=== PATIENT | male | born 1945 | race Caucasian/White ===

== ENCOUNTER 2017-03-26 08:44 | Inpatient (IN) | payer OTHER ==
[2017-03-26] VITALS (7 sets, daily range): BP systolic 141–147; BP diastolic 64–78; PULSE 63–86; RESP 18–20; TEMP 98.2; Ht 177.8 cm; Wt 107.5 kg
[~2017-03-26] VITALS: Ht 177.8 cm; Wt 107.5 kg
[2017-03-26] MEDS ORDERED: SOD CHLORIDE 0.9% 500 ML IV STA (08:49)
[2017-03-26] MEDS ORDERED: LANT3I SC (08:57)
[2017-03-26] MEDS ORDERED: ASPI-664 PO (08:58)
[2017-03-26] MEDS ORDERED: METF1000 PO (08:58)
[2017-03-26] MEDS ORDERED: LIRA0.6P SQ (08:59)
[2017-03-26] MEDS ORDERED: ATOR10TA65 PO (08:59)
[2017-03-26] MEDS ORDERED: OXYB10TA6 PO (08:59)
[2017-03-26] MEDS ORDERED: CETI-240 PO (08:59)
[2017-03-26] MEDS ORDERED: TAMS-14 PO (09:00)
[2017-03-26] MEDS ORDERED: AMLO2.5T78 PO (09:00)
[2017-03-26 09:01] LABS: ADD SCAN DIFF NO
[2017-03-26] MEDS ORDERED: OMEP20CA16 PO (09:01)
[2017-03-26] MEDS ORDERED: GABA100C14 PO (09:01)
[2017-03-26] MEDS ORDERED: TRAM50TA2 PO (09:01)
[2017-03-26] MEDS ORDERED: ATOR40TA68 PO (09:03)
[2017-03-26] MEDS ORDERED: FINA5TAB4 PO (09:04)
[2017-03-26] MEDS ORDERED: LIRA0.6P2 SQ (09:06)
[2017-03-26] MEDS ORDERED: FLUT16SP17 NASAL (09:09)
[2017-03-26] MEDS ORDERED: OMEG-135 PO (09:09)
[2017-03-26] MEDS ORDERED: GABA300C16 PO (09:10)
[2017-03-26] MEDS ORDERED: DEXT1TAB12 PO (09:13)
[2017-03-26] MEDS ORDERED: ALBU8.5H3 INH (09:14)
[2017-03-26 09:16] LABS: ALBUMIN 3.8 g/dl (3.3-4.9)
[2017-03-26] MEDS ORDERED: MICO30CR17 TOP (09:16)
[2017-03-26] MEDS ORDERED: MULT-761 PO (09:16)
[2017-03-26 09:17] LABS: CHLORIDE 98 mmol/L (97-110); POTASSIUM 4.1 mmol/L (3.5-5.1); SODIUM 138 mmol/L (135-144)
[2017-03-26] MEDS ORDERED: KENC1 TOP (09:17)
[2017-03-26 09:19] LABS: ANION GAP 17 (8-16); ASPARTATE AMINO TRANSFERASE 43 IU/L (15-46); BILIRUBIN,INDIRECT 0.1 mg/dl (0-1.1); BILIRUBIN,TOTAL 0.1 mg/dl (0.2-1.3); CARBON DIOXIDE 27 mmol/L (21-31); CREATININE 0.88 mg/dl (0.61-1.24)
--- NOTE | 2017-03-26 09:19 | RADRPT ---
PROCEDURE: XR Chest 1 View. CLINICAL INDICATION: Chest pain TECHNIQUE: AP view of the chest was obtained. COMPARISON: None. FINDINGS: The cardiomediastinal silhouette is within normal limits. The lungs are hypoinflated. Subsegmental atelectasis is noted in the bilateral lower lobes. No consolidations are identified. No pneumothora x is seen. Osseous structures are intact. IMPRESSION: Hypoinflated lungs with subsegmental atelectasis in the bilateral lower lobes. RPTAT: AA .Raf Wagner MD, Date Time Electronically viewed and signed by .Raf Wagner MD, on 03/26/2017 09:19 .P/
[2017-03-26 09:20] LABS: ALANINE AMINOTRANSFERASE 64 IU/L (13-69); ALBUMIN/GLOBULIN RATIO 1.08; ALKALINE PHOSPHATASE 89 IU/L (42-121); BASOPHILS % 0.2 % (0.0-2.0); BLOOD UREA NITROGEN 22 mg/dl (7-20); CALCIUM 9.2 mg/dl (8.4-10.2); EOSINOPHILS # 0.1 10^3/ul (0.0-0.5); EOSINOPHILS % 0.9 % (0.0-7.0); GLUCOSE 231 mg/dl (70-220); HEMATOCRIT 37.7 % (42.0-52.0); HEMOGLOBIN 12.6 g/dl (14.0-18.0); LYMPHOCYTES # 1.6 10^3/ul (0.8-2.9); LYMPHOCYTES % 12.5 % (15.0-51.0); MEAN CORPUSCULAR HGB CONC 33.4 g/dl (32.0-37.0); MEAN CORPUSCULAR VOLUME 89.8 fl (82.0-101.0); MEAN PLATELET VOLUME 10.4 fl (7.4-10.4); MONOCYTE # 1.2 10^3/ul (0.3-0.9); PLATELET COUNT 261 10^3/UL (140-415); TOTAL PROTEIN 7.3 g/dl (6.1-8.1); WHITE BLOOD COUNT 12.9 10^3/ul (4.8-10.8)
[2017-03-26] MEDS ORDERED: METH85CR TP (09:20)
[2017-03-26 09:24] LABS: INR 1.02; PROTIME 13.4 Sec (12.2-14.2)
[2017-03-26 09:25] LABS: PARTIAL THROMBOPLASTIN TIME 29.9 Sec (25.0-35.0)
[2017-03-26 09:29] LABS: B-TYPE NATRIURETIC PEPTIDE 62 PG/ML (0-125)
[2017-03-26 09:32] LABS: TROPONIN-I < 0.012 ng/ml (0.00-0.12)
--- NOTE | 2017-03-26 10:08 | ERA ---
ER Documentation Chief Complaint Date/Time DATE: 03/26/17 TIME: 10:02 Chief Complaint CP SINCE 0600 THIS AM, SENT BY CLINIC, NO DIAPHORESIS. MILD SOB HPI This is a 71 mL had chest pain since exam this morning. He walked into the [place] [facility] where they call 911 immediately. He was given aspirin and nitro in the field. EKG is read as STEMI. Upon arrival, patient is chest pain-free. Dr. Moralesand cardiology was consulted, and he is declined but this was a stem insulin patient likely had an infarct hours ago now has Q waves on his EKG which I agree with. Patient is a pain is mild to moderate in intensity with associated diaphoresis and mild shortness of breath. No fevers no chills. No other current complaints. ROS All systems reviewed and are negative except as per history of present illness. Medications Home Meds Reported Medications Methyl Salicylate/Menthol (Muscle Rub Cream) 85 Gm Cream.gm., 85 GM TP DAILY Y for PAIN 03/26/17 Triamcinolone Acetonide* (Kenalog*) 0.1%-15GM Cr, 1 APPLIC TOP EVERY OTHER DAY, #1 TUB 03/26/17 Miconazole Nitrate* (Miconazole Nitrate*) 2% - 30 Gm Cr, 1 APPLIC TOP BID, TUB 03/26/17 Multivitamin (MULTI VITAMIN DAILY) 1 Each Tablet, 1 TAB PO DAILY, TAB 03/26/17 Albuterol Sulfate* (Proair HFA*) 8.5 Gm Hfa.aer.ad, 2 PUFF INH Q4H Y for WHEEZING AND SOB, #1 INHALER 03/26/17 Dextrose (GLUCOSE BITS) 1 Gm Tab.chew, 4 GM PO PRN Y for LOW BLOOD SUGAR, TAB.CHEW BLOOD SUGAR LESS THAN 80 RECHECK BLOOD SUGAR IN 15 MIN AND REPEAT IF NECESSARY EAT FULL MEAL AFTERWARDS 03/26/17 Gabapentin* (Gabapentin*) 300 Mg Capsule, 300 MG PO QHS, #60 CAP 03/26/17 Fluticasone Propionate* (Fluticasone Propionate* Nasal) 50 Mcg/[place] - 16 Gm [place].susp, 1 SPRAY NASAL BID, #1 BOTTLE TO EACH NOSTRIL 03/26/17 [place]-3 Fatty Acids/Fish Oil (Fish Oil 1,000 mg Capsule) 1 Each Capsule, 1 EACH PO DAILY, CAP 03/26/17 Liraglutide (Victoza 3-Devante) 0.6 Mg/0.1 Ml Pen.injctr, 1.8 MG SQ DAILY, SYR 03/26/17 Finasteride* (Finasteride*) 5 Mg Tablet, 5 MG PO DAILY, TAB 03/26/17 Atorvastatin* (Atorvastatin*) 40 Mg Tablet, 40 MG PO QHS, #30 TAB 03/26/17 Tramadol HCl (Tramadol HCl) 50 Mg Tablet, 50 MG PO BID Y for PAIN, #60 TAB 03/26/17 Omeprazole* (Omeprazole*) 20 Mg Capsule.dr, 20 MG PO BID, #60 CAP 03/26/17 Amlodipine Besylate* (Amlodipine Besylate*) 2.5 Mg Tablet, 2.5 MG PO DAILY, #30 TAB 03/26/17 Tamsulosin Hcl* (Flomax*) 0.4 Mg Cap.er.24h, 0.4 MG PO DAILY, CAP 03/26/17 Oxybutynin Chloride* (Ditropan* XL) 10 Mg Tab.er.24, 10 MG PO DAILY, TAB.SA 03/26/17 Cetirizine Hcl* (Cetirizine Hcl*) 10 Mg Tablet, 10 MG PO DAILY, #30 TAB 03/26/17 Aspirin (Low Dose Aspirin) 81 Mg Tablet.dr, 81 MG PO DAILY, #30 TAB 03/26/17 Metformin Hcl* (Metformin Hcl*) 1,000 Mg Tablet, 1000 MG PO WITH BREAKFAST DINNE , #30 TAB 03/26/17 Insulin Glargine* (Lantus*) 100 Unit/Ml Soln, 30 UNIT SC QHS, #1 VIAL 03/26/17 Discontinued Reported Medications Gabapentin* (Gabapentin*) 100 Mg Capsule, 200 MG PO QHS, #180 CAP 03/26/17 Atorvastatin Calcium (Atorvastatin Calcium) 10 Mg Tablet, 10 MG PO QHS, #30 TAB 03/26/17 Liraglutide (Victoza 2-Devante) 0.6 Mg/0.1 Ml Pen.injctr, 1.2 MG SQ DAILY, SYR 03/26/17 Allergies Allergies: Coded Allergies: No Known Allergy (Unverified , 03/26/17) PMhx/Soc Medical and Surgical Hx: pt denies Surgical Hx Anesthesia Reaction: No Hx Neurological Disorder: No Hx Respiratory Disorders: No Hx Cardiac Disorders: Yes (HTN, Hyperlipidemia) Hx Psychiatric Problems: No Hx Miscellaneous Medical Probl: Yes (DMII) Hx Alcohol Use: No Hx Substance Use: No Hx Tobacco Use: Yes Smoking Status: Former smoker Physical Exam Vitals Vital Signs Date Time Temp Pulse Resp B/P Pulse Ox O2 Delivery O2 Flow Rate FiO2 03/26/17 09:00 0 03/26/17 09:00 98.2 91 17 120/88 95 Room Air 03/26/17 08:52 98.1 89 120/88 96 Physical Exam Const: [] Head: Atraumatic Eyes: Normal Conjunctiva ENT: Normal External Ears, Nose and Mouth. Neck: Full range of motion..~ No meningismus. Resp: Clear to auscultation bilaterally Cardio: Regular rate and rhythm, no murmurs Abd: Soft, non tender, non distended. Normal bowel sounds Skin: No petechiae or rashes Back: No midline or flank tenderness Ext: No cyanosis, or edema Neur: Awake and alert Psych: Normal Mood and Affect Result Diagram: 03/26/17 0856 03/26/17 0856 Results 24 hrs Laboratory Tests Test 03/26/17 08:56 White Blood Count 12.910^3/ul Red Blood Count 4.2010^6/ul Hemoglobin 12.6g/dl Hematocrit 37.7% Mean Corpuscular Volume 89.8fl Mean Corpuscular Hemoglobin 30.0pg Mean Corpuscular Hemoglobin Concent 33.4g/dl Red Cell Distribution Width 14.0% Platelet Count 15306^3/UL Mean Platelet Volume 10.4fl Neutrophils % 77.0% Lymphocytes % 12.5% Monocytes % 9.0% Eosinophils % 0.9% Basophils % 0.2% Nucleated Red Blood Cells % 0.0/100WBC Neutrophils # 10.010^3/ul Lymphocytes # 1.610^3/ul Monocytes # 1.210^3/ul Eosinophils # 0.110^3/ul Basophils # 0.010^3/ul Nucleated Red Blood Cells # 0.010^3/ul Prothrombin Time 13.4Sec Prothrombin Time Ratio 1.0 INR International Normalized Ratio 1.02 Activated Partial Thromboplast Time 29.9Sec Sodium Level 138mmol/L Potassium Level 4.1mmol/L Chloride Level 98mmol/L Carbon Dioxide Level 27mmol/L Anion Gap 17 Blood Urea Nitrogen 22mg/dl Creatinine 0.88mg/dl Glucose Level 231mg/dl Calcium Level 9.2mg/dl Total Bilirubin 0.1mg/dl Direct Bilirubin 0.00mg/dl Indirect Bilirubin 0.1mg/dl Aspartate Amino Transf (AST/SGOT) 43IU/L Alanine Aminotransferase (ALT/SGPT) 64IU/L Alkaline Phosphatase 89IU/L Troponin I < 0.012ng/ml B-Type Natriuretic Peptide 62PG/ML Total Protein 7.3g/dl Albumin 3.8g/dl Globulin 3.50g/dl Albumin/Globulin Ratio 1.08 Current Medications Medications (Trade) Dose Ordered Sig/[place] Route PRN Reason Start Time Stop Time Status Last Admin Dose Admin Sodium Chloride (NS) 500 ml @ 500 mls/hr Q1H STAT IV 03/26/17 08:49 03/26/17 09:48 DC 03/26/17 09:27 Procedures/MDM EKG: Rate/Rhythm: Normal Sinus Rhythm QRS, ST, T-waves: [Q waves in anterior leads, minimal ST segment elevations in V1 through 4 Impression: No evidence of ischemia or arrhythmia Chest X-ray 1V Interpreted by me: Soft Tissue: No acute abnormalities Bones: No acute abnormalities Mediastinum/Cardiac Silhouette/Lungs: No acute abnormalities Patient's symptoms are concerning for cardiac cause will require inpatient workup and continuous monitoring. Further w/u for ischemia, arrhythmia, PE or dissection will be deferred to the inpatient team. Accepting Care Team: Current data and ongoing care discussed. Time: 9:30 AM Primary Provider: Hospitalist Consulting: mert Outstanding Data: none Critical Care: Time: 45 minutes Treatments/Evaluations: Close monitoring and treatment of unstable vital signs, cardiorespiratory, and neurologic status, while maintaining tight balance of fluid, respiratory, and cardiac interventions. Departure Diagnosis: Primary Impression: Chest pain Qualified Code: I20.0 - Unstable angina pectoris Condition: Serious EDNA BROCK March 26, 2017 10:08
[2017-03-26] MEDS ORDERED: hydrALAzine 20 MG INJ IV PRN (11:00)
[2017-03-26] MEDS ORDERED: GLUCOSE GEL 15 GRAM TUBE PO PRN ×2 (11:00)
[2017-03-26] MEDS ORDERED: ALBUTEROL 0.083% (NEB) 2.5 MG/3 ML AMP HHN PRN (11:00)
[2017-03-26] MEDS ORDERED: NACL 0.9% 3 ML SYG IV SCH (11:00)
[2017-03-26] MEDS ORDERED: BISACODYL (EC) 5 MG TAB PO PRN (11:00)
[2017-03-26] MEDS ORDERED: GLUCOSE GEL 15 GRAM TUBE BUCCAL PRN (11:00)
[2017-03-26] MEDS ORDERED: HYDROCODONE/APAP (5/325) TAB PO PRN (11:00)
[2017-03-26] MEDS ORDERED: GLUCAGON 1 MG INJ IM PRN (11:00)
[2017-03-26] MEDS ORDERED: ONDANSETRON 4 MG INJ IV PRN (11:00)
[2017-03-26] MEDS ORDERED: MAGNESIUM HYDROXIDE 30ML CUP PO PRN (11:00)
[2017-03-26] MEDS ORDERED: DEXTROSE 50% 50 ML SYRINGE IV PRN ×2 (11:00)
[2017-03-26 11:31] LABS: IRON 30 ug/dl (35-150)
[2017-03-26 11:40] LABS: TOTAL IRON BINDING CAPACITY 352 ug/dl (241-421)
--- NOTE | 2017-03-26 11:45 | HP ---
DATE OF ADMISSION: 03/26/2017 TIME OF EVALUATION: 10:30 a.m. REASON FOR ADMISSION: Chest pain. CONSULTATIONS: Dr. Jose Auguste, Cardiology HISTORY OF PRESENT ILLNESS: This is a 71-year-old male with past medical history of essential hypertension, type 2 diabetes mellitus, dyslipidemia, and obesity who came to the emergency room because of chest pain. The patient walked into the [facility] because of chest pain and they called the paramedics. The patient was given aspirin and nitroglycerin in the field with improvement in the patient's chest pain. The patient verbalized the chest pain as substernal in origin with no radiation or no associated autonomic symptoms. The patient denied any dizziness. The patient denied any prior history of CAD. The patient's EKG showed acute VT and a code STEMI was called. However, after evaluation by lithographic photographer, the patient had Q-waves in the leads that had ST elevation and was brought to be not in acute STEMI, but the patient might have had an VT in the recent past. Hence, the code STEMI was canceled, and the patient was not taken to the [facility]. The patient denied any dyspnea. He denied any nausea, vomiting, abdominal pain, diarrhea, hematochezia, or dysuria. The patient verbalized that he has been compliant with his home medications. In the emergency room, the patient's initial troponin was negative. The patient was noticed to have minimal leukocytosis with some anemia. PAST MEDICAL HISTORY: Essential hypertension, type 2 diabetes mellitus, hyperlipidemia, obesity, benign prostatic hypertrophy. PAST SURGICAL HISTORY: Left carpal tunnel syndrome surgery. Left second toe amputation secondary to diabetic ulceration. HOME MEDICATIONS: 1. ProAir HFA 8.5 g 2 puffs inhaled q.4 hours p.r.n. dyspnea. 2. Gabapentin 300 mg p.o. at bedtime. 3. [place] 3 fatty acids. 4. Liraglutide 0.6 mg injection subcutaneously daily. 6. Finasteride 5 mg p.o. daily. 7. Atorvastatin 40 mg p.o. daily. 8. Tramadol 50 mg p.o. b.i.d. p.r.n. pain. 9. Tamsulosin 0.4 mg p.o. daily. 10. Ditropan XL 10 mg p.o. daily. 11. Aspirin 81 mg p.o. daily. 12. Metformin 1000 mg p.o. with breakfast and dinner. 13. Lantus insulin 30 units subcutaneously at bedtime. ALLERGIES: NO KNOWN DRUG ALLERGIES. SOCIAL HISTORY: The patient lives at home by himself. The patient has a remote history of smoking. Current occasional alcoholic drinker. Denied any use of any drugs. REVIEW OF SYSTEMS: A 12-point review of systems was obtained and reviewed of systems was negative other than what is mentioned in the history of present illness. PHYSICAL EXAMINATION: VITAL SIGNS: Temperature 98.2, pulse rate 81, respiratory rate 22, blood pressure 130/60, oxygen saturation 96% on room air. GENERAL: This is a morbidly obese male lying in bed in no apparent distress. HEENT: Head normocephalic and atraumatic. Eyes: Anicteric sclerae. Conjunctivae clear. ENT: Nasal septum is midline. Oral mucosa is dry. NECK: Short and obese. Unable to visualize any neck veins. CARDIAC: Regular rate and rhythm. GASTROINTESTINAL: S1 and S2 heard. ABDOMEN: Obese. Soft. Nondistended. Bowel sounds positive in all 4 quadrants. GENITOURINARY: Deferred. EXTREMITIES: No cyanosis, no clubbing, no edema. Peripheral pulses palpable. NEUROLOGIC: The patient is awake, alert, and oriented. Cranial nerves are grossly intact. LABORATORY AND DIAGNOSTIC DATA: WBC 12.9, hemoglobin 12.6, hematocrit 37.7, platelet count 261. Sodium 138, potassium 4.1, chloride 98, carbon dioxide 20, anion gap 17, BUN 22, creatinine 0.88, glucose 231, calcium 9.2, AST 43, ALT 65 , alkaline phosphatase 89, troponin I less than 0.01, proBNP 62, total protein 7.3, albumin 3.8. PT 13.4, INR 1.03, PTT 29.9. Chest x-ray: Hypoinflated lungs, subsegmental atelectasis in bilateral lower lobes. IMPRESSION: This is a 71-year-old male with multiple comorbidities who was brought to the emergency room with chief complaint of chest pain who was found to have evidence of ST elevation myocardial infarction, but was later evaluated by lithographic photographer and a code STEMI was canceled. However, the patient will be admitted to inpatient setting for further evaluation. ASSESSMENT AND PLAN: 1. Chest pain with EKG changes. The patient will be ruled out for any acute coronary syndrome. Serial troponins will be ordered. A 2-D echocardiogram will be obtained. The patient will be started on aspirin. Cardiology consult was already called by the ER physician. 2. Essentially hypertension. The patient's home antihypertensives will be resumed. The patient will also be started on p.r.n. antihypertensives for any systolic blood pressure readings greater than 160 mmHg. 3. Type 2 diabetes mellitus. The patient will be started on sliding scale insulin along with the Lantus insulin and premeal insulin. Hemoglobin A1c will be obtained to evaluate the blood glucose control over the past few weeks. 4. Dyslipidemia. A fasting lipid panel will be obtained. The patient's statins will be resumed. 5. Benign prostatic hypertrophy. The patient's BPH medications will be resumed. 6. Normocytic normochromic anemia. Etiology unclear. Will obtain an iron panel on this patient. The patient's H and H will be monitored closely. PLAN: The patient will be admitted to inpatient telemetry floor. The patient will be kept n.p.o. until Cardiology evaluates the patient. The patient will be started on DVT prophylaxis and gastrointestinal prophylaxis. The patient will remain a full code. Activities will be as tolerated. The rest of the patient's management will be based on the clinical course, the results of diagnostic studies, and input from consultants. Based on the patient's clinical presentation, he most probably requires at least 1 midnight's stay for further management and evaluation of his clinical presentation. The case and management of this patient was fully discussed with Dr. Nunez. DAVID NUNEZ MD, AM/LUIS Conf#: [id number] DID#: [id number] MORIAH
[2017-03-26] MEDS ORDERED: OXYBUTYNIN (XL) 5 MG TAB PO SCH (12:00)
[2017-03-26] MEDS: INSULIN ASPART [NOVOLOG] 3 ML PEN SC SCH ×5 (12:00→20:22)
[2017-03-26] MEDS ORDERED: FINASTERIDE 5 MG TAB PO SCH (12:00)
[2017-03-26] MEDS: ASPIRIN (EC) 81 MG TAB PO SCH (12:31)
[2017-03-26] MEDS: AMLODIPINE 2.5 MG TAB PO SCH (12:31)
[2017-03-26] MEDS: ENOXAPARIN 40 MG/0.4 ML SYG SC SCH (13:01)
[2017-03-26 15:39] LABS: CREATINE KINASE 272 IU/L (23-200)
[2017-03-26 15:52] LABS: TROPONIN-I < 0.012 ng/ml (0.00-0.12)
[2017-03-26 17:31] LABS: BARBITURATES NEGATIVE (NEGATIVE); BENZODIAZEPINES NEGATIVE (NEGATIVE); CANNABINOIDS NEGATIVE (NEGATIVE); COCAINE NEGATIVE (NEGATIVE); OPIATES NEGATIVE (NEGATIVE)
[2017-03-26] MEDS ORDERED: NITROGLYCERIN (SL) 0.4 MG TAB SL PRN (19:00)
--- NOTE | 2017-03-26 19:28 | RADRPT ---
Echocardiogram Report Patient Name: OMAR MOTT Gender: Male Date: 1945 Study Date: 26-Mar-2017 Coordinate Measuring Machine Operator: ERICA [facility] Location: [facility] Ref. Physician: DAVID HILARIO Quality: Adequate Procedures: Transthoracic echocardiogram with complete 2D, M-Mode, and doppler examination. Indications: Chest Pain. 2D/M Mode Doppler Measurement Value Normal Ranges Measurement Value Normal Ranges LVIDd 2D 4.7 3.5 - 5.6 cm AV Peak [place] 1.3 m/sec LVIDs 2D 3.1 2.1 - 4.1 cm AV Peak PG 6.3 mmHg LVPWd 2D 1.2 0.6 - 1.1 cm LVOT Peak [place] 1.1 m/sec IVSd 2D 1.1 0.6 - 1.1 cm LVOT Peak PG 5.1 mmHg AoR Diam 2D 3.2 2.0 - 3.7 cm MV E Peak [place] 0.9 m/sec EDV 2D 102.3 cm3 MV A Peak [place] 0.8 m/sec ESV 2D 29.0 cm3 MV E/A 1.1 LA Dimen 2D 3.3 2.3 - 4.0 cm MV Decel Time 202 msec MV Decel [place] 4 MV E/A 1.1 TR Peak [place] 2.7 m/sec TR Peak PG 27.6 mmHg PA Pressure 32.0 mmHg RVSP 32.0 mmHg Findings Left Ventricle: Normal left ventricular systolic function. Normal left ventricular cavity size. Left ventricular wall thickness upper limits of normal. Ejection fraction is visually estimated at 60 %. Tissue Doppler/Mitral Doppler indices are consistent with impaired relaxation (Stage I diastolic dysfunction). Right Ventricle: Normal right ventricular size. Left Atrium: The left atrium is normal in size. Right Atrium: The right atrium is normal in size. Mitral Valve: Mild mitral annular calcification. Trace mitral regurgitation. Aortic Valve: Normal appearance of the aortic valve. No significant aortic stenosis or insufficiency. Tricuspid Valve: Tricuspid valve not well visualized. Estimated peak PA systolic pressure 32 mmHg. There is mild tricuspid regurgitation. Pulmonic Valve: Pulmonic valve not well visualized. There is trace pulmonic regurgitation. Pericardium: Normal pericardium with no significant pericardial effusion. Aorta: Normal aortic root. IVC: Normal size and normal respiratory collapse consistent with normal right atrial pressure. Conclusions 1.Normal left ventricular systolic function. Normal left ventricular cavity size. Left ventricular wall thickness upper limits of normal. Ejection fraction is visually estimated at 60 %. Tissue Doppler/Mitral Doppler indices are consistent with impaired relaxation (Stage I diastolic dysfunction). 2.Mild mitral annular calcification. Trace mitral regurgitation. 3.Tricuspid valve not well visualized. Estimated peak PA systolic pressure 32 mmHg. There is mild tricuspid regurgitation. 4.Pulmonic valve not well visualized. There is trace pulmonic regurgitation. Electronically Signed By: Omar Auguste 26-Mar-2017 19:27:07 -0700 Patient Name: OMAR MOTT Study Date: 26-Mar-2017 [id number]
[2017-03-26] MEDS ORDERED: INSULIN GLARGINE [LANtus] 3 ML PEN SC SCH (20:00)
[2017-03-26] MEDS: METOPROLOL 25 MG TAB PO SCH (20:15)
[2017-03-26] MEDS: FAMOTIDINE 20 MG TAB PO SCH (20:16)
[2017-03-26] MEDS: FLUTICASONE 0.05% 16 GM NAS SPRAY NASAL SCH (20:16)
[2017-03-26] MEDS ORDERED: GABAPENTIN 300 MG CAP PO SCH (21:00)
[2017-03-26] MEDS ORDERED: ATORVASTATIN 40 MG TAB PO SCH (21:00)
[2017-03-26 21:32] LABS: TROPONIN-I 0.022 ng/ml (0.00-0.12)
[2017-03-26 21:33] LABS: CK-MB 9.93 ng/ml (0.0-2.4)
[2017-03-27] VITALS (10 sets, daily range): BP systolic 123–134; BP diastolic 63–79; PULSE 67–133; RESP 18
[2017-03-27] MEDS ORDERED: ACCU-CHEK XX SCH (02:00)
[2017-03-27] MEDS: INSULIN ASPART [NOVOLOG] 3 ML PEN SC SCH ×4 (06:34→13:54)
[2017-03-27 06:54] LABS: ADD SCAN DIFF NO
[2017-03-27 07:00] LABS: BASOPHILS % 0.3 % (0.0-2.0); EOSINOPHILS # 0.2 10^3/ul (0.0-0.5); EOSINOPHILS % 1.5 % (0.0-7.0); HEMATOCRIT 38.7 % (42.0-52.0); HEMOGLOBIN 12.7 g/dl (14.0-18.0); LYMPHOCYTES # 1.7 10^3/ul (0.8-2.9); LYMPHOCYTES % 13.5 % (15.0-51.0); MEAN CORPUSCULAR HEMOGLOBIN 29.7 pg (29.0-33.0); MEAN CORPUSCULAR HGB CONC 32.8 g/dl (32.0-37.0); MEAN CORPUSCULAR VOLUME 90.4 fl (82.0-101.0); MEAN PLATELET VOLUME 10.6 fl (7.4-10.4); MONOCYTE # 1.2 10^3/ul (0.3-0.9); MONOCYTES % 9.5 % (0.0-11.0); NEUTROPHIL # 9.4 10^3/ul (1.6-7.5); NEUTROPHILS % 74.7 % (39.0-77.0); PLATELET COUNT 250 10^3/UL (140-415); RED BLOOD COUNT 4.28 10^6/ul (4.70-6.10); RED CELL DISTRIBUTION WIDTH 14.2 % (11.5-14.5); WHITE BLOOD COUNT 12.6 10^3/ul (4.8-10.8)
[2017-03-27 07:15] LABS: ALBUMIN 3.6 g/dl (3.3-4.9)
[2017-03-27 07:16] LABS: POTASSIUM 4.1 mmol/L (3.5-5.1)
[2017-03-27 07:18] LABS: ALBUMIN/GLOBULIN RATIO 1.02; BILIRUBIN,INDIRECT 0.3 mg/dl (0-1.1); BILIRUBIN,TOTAL 0.3 mg/dl (0.2-1.3); CREATININE 0.96 mg/dl (0.61-1.24); TOTAL PROTEIN 7.1 g/dl (6.1-8.1)
[2017-03-27 07:19] LABS: CALCIUM 9.1 mg/dl (8.4-10.2)
[2017-03-27 07:24] LABS: CHOL/HDL RATIO 4.4 RATIO; MAGNESIUM 1.8 mg/dl (1.7-2.5); PHOSPHORUS 3.6 mg/dl (2.5-4.9)
[2017-03-27 07:27] LABS: TROPONIN-I 0.038 ng/ml (0.00-0.12)
[2017-03-27 07:34] LABS: CK-MB 6.17 ng/ml (0.0-2.4)
--- NOTE | 2017-03-27 07:35 | CONS ---
DATE OF ADMISSION: 03/26/2017 DATE OF CONSULTATION: 03/26/2017 REASON FOR CONSULTATION: Chest pain, assess for acute coronary syndrome. REQUESTING PHYSICIAN: Pieter Wilson NP from the hospitalist service and Dr. Nunez. HISTORY OF PRESENT ILLNESS: Mr. Duong is a 71-year-old male with a history of hypertension, diabete s mellitus, dyslipidemia, and obesity who initially was admitted with substernal chest pain. The pa daxa had presented to his primary care physician at the [place] [facility] with chest pain and on EKG he was thought to have ST elevation [place] and subsequently was sent to [facility] for [facility] evaluation. Upon arrival and review of the patient's EKG, STEMI was called off by the interventi onalist division sergeant, Dr. Novoa. Patient now has been admitted to the floor for further evaluation and t reatment. At this time, the patient denies chest pain, shortness of breath. PAST MEDICAL HISTORY: As above in HPI. The patient denied prior myocardial infarction or CVA. MEDICATIONS CURRENTLY IN HOSPITAL: 1. . 2. Lipitor 40 mg at bedtime. 3. Flonase. 4. Gabapentin 300 mg at bedtime. 5. Lovenox ____ daily. 6. Insulin sliding scale. 7. Norvasc 2.5 mg daily. 8. Aspirin 81 mg daily. 9. ____ 5 mg daily. 6. Ditropan 10 mg daily. 7. Zofran p.r.n. 8. Dulcolax p.r.n. 9. Hydralazine IV push p.r.n. ALLERGIES: NO KNOWN DRUG ALLERGIES. SOCIAL HISTORY: No tobacco, ETOH or illicit drug use. FAMILY HISTORY: No history of sudden cardiac or early CAD. REVIEW OF SYSTEMS: As above in HPI. CONSTITUTIONAL: No fevers, chills. PULMONARY: Shortness of breath. CARDIOVASCULAR: Intermittent chest pain, currently resolved. GASTROINTESTINAL: No vomiting. GENITOURINARY: No hematuria. MUSCULOSKELETAL: Degenerative joint disease. PSYCHIATRIC: The patient denies depression. NEUROLOGIC: No documented history of CVA. PHYSICAL EXAMINATION: VITAL SIGNS: Temperature is 98.6, blood pressure 147/78, pulse 69, respiratory rate 20, saturating 98%. GENERAL: The patient is alert, awake, in no acute distress. NECK: JVP approximately 8 to 9 cm of water. CHEST: Fair movement throughout. HEART: Regular rate and rhythm. Normal S1, S2, 1/6 systolic murmur, nondisplaced PMI. ABDOMEN: Positive bowel sounds, soft. EXTREMITIES: No edema, 1+ pulses bilateral posterior tibial. LABORATORIES: As above in [facility] but since admit the patient is having a second troponin return negati ve for two negative troponins. IMAGING STUDIES: As above in [facility] with a chest x-ray revealing hypoinflated lungs with subsegmental atelectasis in the bilateral lower lobes. ELECTROCARDIOGRAM: Most recently from 08:49 this morning which revealed sinus rhythm, rate of 89, n ormal axis, normal intervals, with borderline J-point elevation in the inferior leads with normal co ncavity and no significant reciprocal changes and a borderline right bundle branch block pattern by EKG. IMPRESSION: 1. Chest pain, assess for acute coronary syndrome. 2. , assess for acute coronary syndrome. 3. Right bundle branch block. 4. Hypertension. 5. Dyslipidemia. 6. Diabetes mellitus. RECOMMENDATIONS: 1. At this time, I would maintain the patient on telemetry monitoring to follow rhythm and rate con trol closely. 2. Recheck serial EKGs to assess for any significant ongoing changes. Get EKG now, EKG [facility] [place] [facility], EKG for any complaints of chest pain or changes in rhythm. 3. We will continue to follow the patient's rhythm closely on telemetry with possible episode of SV T with heart rates possibly to 150s versus artifactual change with the patient's leads coming off th e chest. 4. We will continue the patient's aspirin for prophylaxis against cardiovascular events. 5. Continue the patient's current Norvasc at this time for control of blood pressure, and given the patient's possible SVT, we will initiate the patient on beta jennifer for further suppression and ch sharon a TSH to be sure that subclinical hyperthyroidism is not contributing to any possible bouts of t achyarrhythmias and additionally we will check a fasting lipid panel for general risk stratification and adjust the patient's Lipitor medication as necessary and check a 2D echocardiogram to further a ssess the patient's ejection fraction, wall motion, and rule any major valve abnormalities. Thank you for allowing me to take part in the care of this patient. I will continue to follow along very closely with you. Further recommendations will be made as the patient progresses through his inpatient hospital clinical course. Dictated By: OMAR ROCHA/LUIS Conf#: [id number] DID#: [id number] CC: PIETER WILSON NP; GIORGI NUNEZ MD;*End*
[2017-03-27] MEDS: METOPROLOL 25 MG TAB PO SCH (08:12)
[2017-03-27] MEDS: FLUTICASONE 0.05% 16 GM NAS SPRAY NASAL SCH (08:12)
[2017-03-27] MEDS: FAMOTIDINE 20 MG TAB PO SCH (08:12)
[2017-03-27] MEDS: ASPIRIN (EC) 81 MG TAB PO SCH (08:12)
[2017-03-27] MEDS: AMLODIPINE 2.5 MG TAB PO SCH (08:13)
[2017-03-27] MEDS: ENOXAPARIN 40 MG/0.4 ML SYG SC SCH (08:28)
[2017-03-27] MEDS ORDERED: REGADENOSON 0.4 MG/5 ML SYG ONE (11:31)
--- NOTE | 2017-03-27 12:19 | PDOCDIS ---
Discharge Instructions DIAGNOSIS Discharge Diagnosis: 1. Chest pain to previous examination 3. Diabetes 4. HLD 5. BPH CONDITION Patient Condition: Stable HOME CARE INSTRUCTIONS: Diet Instructions: Low Fat /Cholesterol FOLLOW UP/APPOINTMENTS Appointments 1. Follow up with Dr. Jose Auguste within one week OLGA MOSQUEDA March 27, 2017 12:19
--- NOTE | 2017-03-27 12:22 | PN ---
Date/Time of Note Date/Time of Note DATE: 03/27/17 TIME: 12:19 Assessment/Plan VTE Prophylaxis VTE Prophylaxis Intervention: LMWH Lines/Catheters IV C[facility] ([facility] Saline Lock Assessment/Plan Chief Complaint/Hosp Course Assessment and plan 1. Chest pain. Patient with serial troponins that were negative. Noted with preserved ejection fraction per echocardiogram. Continue on ASA. Plan for stress test. Will follow up with results. [employer] Technician following. 2. Essential hypertension. On antihypertensives. Appears stable at present. Will adjust medications as needed 3. Type 2 diabetes. On basal insulin as well as pre-meal insulin. A1c is 7.3. Trend stable for now. Will monitor for now. 4. BPH. Patient's previous medications to be resumed. 5. Iron deficiency anemia. Continue on iron supplement Discussed plan of care with Dr. Mtz Problems: Subjective 24 Hr Interval Summary Free Text/Dictation patient for stress test Exam/Review of Systems Vital Signs Vitals Vital Signs Date Time Temp Pulse Resp B/P Pulse Ox O2 Delivery O2 Flow Rate FiO2 03/27/17 12:08 67 03/27/17 12:01 98.2 18 129/68 98 03/27/17 04:25 Room Air 03/26/17 09:00 0 Intake and Output 03/26/17 03/26/17 03/27/17 15:00 23:00 07:00 Intake Total 680 ml 240 ml Output Total 550 ml Balance 130 ml 240 ml Exam patient for stress test Results Result Diagram: 03/27/17 0545 03/27/17 0545 Results 24 hrs Laboratory Tests Test 03/26/17 12:55 03/26/17 12:58 03/26/17 15:00 03/26/17 17:54 Vitamin D 1,25-Dihydroxy 39.5 Thyroid Stimulating Hormone (TSH) 0.832 Free Thyroxine 0.74 L Bedside Glucose 142 210 Creatine Kinase 272 H Creatine Kinase Index 3.9 Creatinine Kinase MB (Mass) 10.70 H Troponin I < 0.012 Test 03/26/17 20:14 03/26/17 20:55 03/27/17 02:28 03/27/17 05:45 Bedside Glucose 185 152 Creatine Kinase 283 H 218 H Creatine Kinase Index 3.5 2.8 Creatinine Kinase MB (Mass) 9.93 H 6.17 H Troponin I 0.022 0.038 White Blood Count 12.6 H Red Blood Count 4.28 L Hemoglobin 12.7 L Hematocrit 38.7 L Mean Corpuscular Volume 90.4 Mean Corpuscular Hemoglobin 29.7 Mean Corpuscular Hemoglobin Concent 32.8 Red Cell Distribution Width 14.2 Platelet Count 250 Mean Platelet Volume 10.6 H Neutrophils % 74.7 Lymphocytes % 13.5 L Monocytes % 9.5 Eosinophils % 1.5 Basophils % 0.3 Nucleated Red Blood Cells % 0.0 Neutrophils # 9.4 H Lymphocytes # 1.7 Monocytes # 1.2 H Eosinophils # 0.2 Basophils # 0.0 Nucleated Red Blood Cells # 0.0 Sodium Level 137 Potassium Level 4.1 Chloride Level 96 L Carbon Dioxide Level 29 Anion Gap 16 Blood Urea Nitrogen 22 H Creatinine 0.96 Glucose Level 143 # Calcium Level 9.1 Phosphorus Level 3.6 Magnesium Level 1.8 Total Bilirubin 0.3 Direct Bilirubin 0.00 Indirect Bilirubin 0.3 Aspartate Amino Transf (AST/SGOT) 38 Alanine Aminotransferase (ALT/SGPT) 57 Alkaline Phosphatase 87 Total Protein 7.1 Albumin 3.6 Globulin 3.50 H Albumin/Globulin Ratio 1.02 Triglycerides Level 103 Cholesterol Level 103 LDL Cholesterol, Calculated 59 HDL Cholesterol 23 L Cholesterol/HDL Ratio 4.4 Test 03/27/17 06:07 Bedside Glucose 156 Medications Medications Current Medications Ondansetron HCl (Zofran Inj) 4 mg Q6H PRN IV NAUSEA AND/OR VOMITING; Start at 11:00 Acetaminophen/ Hydrocodone Bitart ([place] (5/325)) 1 tab Q6H PRN PO PAIN LEVEL 4 -6; Start 03/26/17 at 11:00 Magnesium Hydroxide (Milk Of Mag) 30 ml DAILY PRN PO CONSTIPATION; Start at 11:00 Bisacodyl (Dulcolax) 5 mg DAILY PRN PO CONSTIPATION; Start 03/26/17 at 11:00 Famotidine (Pepcid) 20 mg Q12 PO Last administered on 03/27/17 08:12; Admin Dose 20 MG; Start 03/26/17 at 21:00 Enoxaparin Sodium (Lovenox) 40 mg DAILY SC Last administered on 03/27/17 08:28 ; Admin Dose 40 MG; Start 03/26/17 at 12:00 Hydralazine HCl (Apresoline) 10 mg Q6H PRN IV SBP>160; Start 03/26/17 at 11:00 Insulin Glargine (Lantus) 20 unit DAILY@20 SC Last administered on 03/26/17 20 :20; Admin Dose 20 UNIT; Start 03/26/17 at 20:00 Amlodipine Besylate (Norvasc) 2.5 mg DAILY PO Last administered on 03/27/17 08 :13; Admin Dose 2.5 MG; Start 03/26/17 at 12:00 Aspirin (Halfprin) 81 mg DAILY PO Last administered on 03/27/17 08:12; Admin Dose 81 MG; Start 03/26/17 at 12:00 Atorvastatin Calcium (Lipitor) 40 mg QHS PO Last administered on 03/26/17 20: 16; Admin Dose 40 MG; Start 03/26/17 at 21:00 Fluticasone Propionate (Flonase 0.05% Nasal) 1 spray BID NASAL Last administered on 03/27/17 08:12; Admin Dose 1 SPRAY; Start 03/26/17 at 21:00 Gabapentin (Neurontin) 300 mg QHS PO Last administered on 03/26/17 20:16; Admin Dose 300 MG; Start 03/26/17 at 21:00 Tamsulosin HCl (Flomax) 0.4 mg DAILY@21 PO ; Start 03/27/17 at 21:00 Miscellaneous Information 1 ea NOTE XX ; Start 03/26/17 at 11:00 Glucose (Glutose) 15 gm Q15M PRN PO DECREASED GLUCOSE; Start 03/26/17 at 11:00 Glucose (Glutose) 22.5 gm Q15M PRN PO DECREASED GLUCOSE; Start 03/26/17 at 11: 00 Dextrose (D50w Syringe) 25 ml Q15M PRN IV DECREASED GLUCOSE; Start 03/26/17 at 11:00 Dextrose (D50w Syringe) 50 ml Q15M PRN IV DECREASED GLUCOSE; Start 03/26/17 at 11:00 Glucagon (Glucagen) 1 mg Q15M PRN IM DECREASED GLUCOSE; Start 03/26/17 at 11:00 Glucose (Glutose) 15 gm Q15M PRN BUCCAL DECREASED GLUCOSE; Start 03/26/17 at 11 :00 Nitroglycerin (Nitroglycerin (Sl Tab) 0.4 Mg) 1 tab Q5M PRN SL ANGINA; Start at 19:00 Metoprolol Tartrate (Lopressor) 25 mg BID PO Last administered on 03/27/17 08: 12; Admin Dose 25 MG; Start 03/26/17 at 21:00 Insulin Aspart (Novolog Insulin Pen) NOVOLOG *MILD* ALGORI... Q6 SC Last administered on 03/27/17 06:34; Admin Dose 1 UNIT; Start 03/27/17 at 06:00 Finasteride (Proscar) 5 mg QHS PO ; Start 03/27/17 at 21:00 Oxybutynin Chloride (Ditropan Xl) 10 mg QHS PO ; Start 03/27/17 at 21:00 OLGA MOSQUEDA March 27, 2017 12:22
[2017-03-27] MEDS ORDERED: FERROUS SULFATE (EC) 325 MG TAB PO SCH (12:30)
--- NOTE | 2017-03-27 13:06 | CONS ---
Date/Time of Note Date/Time of Note DATE: 03/27/17 TIME: 13:03 Assessment/Plan Assessment/Plan Additional Assessment/Plan Atypical chest pain diabetes hypertension dyslipidemia BPH obesity Hemodynamically stable Continue Metoprolol Continue Norvasc Continue Insulin Continue GI and DVT Prophylaxis Awaiting result of latoya scan Consultation Date/Type/Reason Admit Date/Time March 26, 2017 at 09:40 Social History Smoking Status: Former smoker Exam/Review of Systems Vital Signs Vitals Vital Signs Date Time Temp Pulse Resp B/P Pulse Ox O2 Delivery O2 Flow Rate FiO2 03/27/17 12:08 67 03/27/17 12:01 98.2 18 129/68 98 03/27/17 04:25 Room Air 03/26/17 09:00 0 Intake and Output 03/26/17 03/26/17 03/27/17 14:59 22:59 06:59 Intake Total 680 ml 240 ml Output Total 550 ml Balance 130 ml 240 ml Exam Constitutional: alert, oriented, well developed Head: atraumatic, normocephalic Neck: non-tender, supple Respiratory: clear to auscultation Cardiovascular: regular rate and rhythm Gastrointestinal: nl liver, spleen, non-tender, soft Extremities: normal pulses Results Result Diagram: 03/27/17 0545 03/27/17 0545 Results 24 hrs Laboratory Tests Test 03/26/17 15:00 03/26/17 17:54 03/26/17 20:14 03/26/17 20:55 Creatine Kinase 272 H 283 H Creatine Kinase Index 3.9 3.5 Creatinine Kinase MB (Mass) 10.70 H 9.93 H Troponin I < 0.012 0.022 Bedside Glucose 210 185 Test 03/27/17 02:28 03/27/17 05:45 03/27/17 06:07 Bedside Glucose 152 156 White Blood Count 12.6 H Red Blood Count 4.28 L Hemoglobin 12.7 L Hematocrit 38.7 L Mean Corpuscular Volume 90.4 Mean Corpuscular Hemoglobin 29.7 Mean Corpuscular Hemoglobin Concent 32.8 Red Cell Distribution Width 14.2 Platelet Count 250 Mean Platelet Volume 10.6 H Neutrophils % 74.7 Lymphocytes % 13.5 L Monocytes % 9.5 Eosinophils % 1.5 Basophils % 0.3 Nucleated Red Blood Cells % 0.0 Neutrophils # 9.4 H Lymphocytes # 1.7 Monocytes # 1.2 H Eosinophils # 0.2 Basophils # 0.0 Nucleated Red Blood Cells # 0.0 Sodium Level 137 Potassium Level 4.1 Chloride Level 96 L Carbon Dioxide Level 29 Anion Gap 16 Blood Urea Nitrogen 22 H Creatinine 0.96 Glucose Level 143 # Calcium Level 9.1 Phosphorus Level 3.6 Magnesium Level 1.8 Total Bilirubin 0.3 Direct Bilirubin 0.00 Indirect Bilirubin 0.3 Aspartate Amino Transf (AST/SGOT) 38 Alanine Aminotransferase (ALT/SGPT) 57 Alkaline Phosphatase 87 Creatine Kinase 218 H Creatine Kinase Index 2.8 Creatinine Kinase MB (Mass) 6.17 H Troponin I 0.038 Total Protein 7.1 Albumin 3.6 Globulin 3.50 H Albumin/Globulin Ratio 1.02 Triglycerides Level 103 Cholesterol Level 103 LDL Cholesterol, Calculated 59 HDL Cholesterol 23 L Cholesterol/HDL Ratio 4.4 Medications Medications Current Medications Ondansetron HCl (Zofran Inj) 4 mg Q6H PRN IV NAUSEA AND/OR VOMITING; Start at 11:00 Acetaminophen/ Hydrocodone Bitart ([place] (5/325)) 1 tab Q6H PRN PO PAIN LEVEL 4 -6; Start 03/26/17 at 11:00 Magnesium Hydroxide (Milk Of Mag) 30 ml DAILY PRN PO CONSTIPATION; Start at 11:00 Bisacodyl (Dulcolax) 5 mg DAILY PRN PO CONSTIPATION; Start 03/26/17 at 11:00 Famotidine (Pepcid) 20 mg Q12 PO Last administered on 03/27/17 08:12; Admin Dose 20 MG; Start 03/26/17 at 21:00 Enoxaparin Sodium (Lovenox) 40 mg DAILY SC Last administered on 03/27/17 08:28 ; Admin Dose 40 MG; Start 03/26/17 at 12:00 Hydralazine HCl (Apresoline) 10 mg Q6H PRN IV SBP>160; Start 03/26/17 at 11:00 Insulin Glargine (Lantus) 20 unit DAILY@20 SC Last administered on 03/26/17 20 :20; Admin Dose 20 UNIT; Start 03/26/17 at 20:00 Amlodipine Besylate (Norvasc) 2.5 mg DAILY PO Last administered on 03/27/17 08 :13; Admin Dose 2.5 MG; Start 03/26/17 at 12:00 Aspirin (Halfprin) 81 mg DAILY PO Last administered on 03/27/17 08:12; Admin Dose 81 MG; Start 03/26/17 at 12:00 Atorvastatin Calcium (Lipitor) 40 mg QHS PO Last administered on 03/26/17 20: 16; Admin Dose 40 MG; Start 03/26/17 at 21:00 Fluticasone Propionate (Flonase 0.05% Nasal) 1 spray BID NASAL Last administered on 03/27/17 08:12; Admin Dose 1 SPRAY; Start 03/26/17 at 21:00 Gabapentin (Neurontin) 300 mg QHS PO Last administered on 03/26/17 20:16; Admin Dose 300 MG; Start 03/26/17 at 21:00 Tamsulosin HCl (Flomax) 0.4 mg DAILY@21 PO ; Start 03/27/17 at 21:00 Miscellaneous Information 1 ea NOTE XX ; Start 03/26/17 at 11:00 Glucose (Glutose) 15 gm Q15M PRN PO DECREASED GLUCOSE; Start 03/26/17 at 11:00 Glucose (Glutose) 22.5 gm Q15M PRN PO DECREASED GLUCOSE; Start 03/26/17 at 11: 00 Dextrose (D50w Syringe) 25 ml Q15M PRN IV DECREASED GLUCOSE; Start 03/26/17 at 11:00 Dextrose (D50w Syringe) 50 ml Q15M PRN IV DECREASED GLUCOSE; Start 03/26/17 at 11:00 Glucagon (Glucagen) 1 mg Q15M PRN IM DECREASED GLUCOSE; Start 03/26/17 at 11:00 Glucose (Glutose) 15 gm Q15M PRN BUCCAL DECREASED GLUCOSE; Start 03/26/17 at 11 :00 Nitroglycerin (Nitroglycerin (Sl Tab) 0.4 Mg) 1 tab Q5M PRN SL ANGINA; Start at 19:00 Metoprolol Tartrate (Lopressor) 25 mg BID PO Last administered on 03/27/17 08: 12; Admin Dose 25 MG; Start 03/26/17 at 21:00 Insulin Aspart (Novolog Insulin Pen) NOVOLOG *MILD* ALGORI... Q6 SC Last administered on 03/27/17 06:34; Admin Dose 1 UNIT; Start 03/27/17 at 06:00 Finasteride (Proscar) 5 mg QHS PO ; Start 03/27/17 at 21:00 Oxybutynin Chloride (Ditropan Xl) 10 mg QHS PO ; Start 03/27/17 at 21:00 Ferrous Sulfate (Ferrous Sulfate (Ec)) 325 mg BID PO ; Start 03/27/17 at 12:30 RICHIE BONE M.D. March 27, 2017 13:06
[2017-03-27] MEDS ORDERED: FER325 PO (14:51)
[2017-03-27] MEDS ORDERED: METO-448 PO (14:51)
--- NOTE | 2017-03-27 16:49 | RADRPT ---
PROCEDURE: Nuclear medicine myocardial perfusion scan CLINICAL INDICATION: Chest pain TECHNIQUE: 32.0 mCi of technetium 99m Myoview was administered for the stress study. 10.0 mCi of technetium 99m Myoview was administered for the resting study. The patient was stressed with 0.4 mg of Lexiscan. Images were reviewed in the short axis, vertical long axis, and horizontal long axis v iews. Wall motion was assessed and ejection fraction was calculated as well. Images were reviewed o n a high-resolution PACS workstation. COMPARISON: None available FINDINGS: Left ventricular size is within normal limits. There is moderate soft tissue and bowel attenuation artifact. The stress tomographic images demonstrate mild diminished perfusion along the basal to di stal inferolateral wall The resting tomographic images demonstrate a similar pattern. There is no evidence for reversible ischemia. Wall motion is normal. The ejection fraction is calculated at 51 %. IMPRESSION: 1. Diminished perfusion along the basal to distal inferolateral wall. 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 2. There is no evidence for reversible ischemia. 3. Normal wall motion with low normal ejection fraction of 51%. RPTAT: HMJB .Buzz Covington MD, MD Date Time Electronically viewed and signed by .Buzz Covington MD, MD on 03/27/2017 16:49 .B/
--- NOTE | 2017-03-27 17:10 | DS ---
Date/Time of Note Date/Time of Note DATE: 03/27/17 TIME: 17:07 Discharge Summary Admission/Discharge Info Admit Date/Time March 26, 2017 at 09:40 Discharge Date/Time Final Diagnosis 1. Chest pain. 2. Essential hypertension. 3. Type 2 diabetes. 4. BPH. 5. Iron deficiency anemia. Patient Condition: Stable Consults 1. Dr. Solitario Regan 2. Dr. Jose Auguste Hospital Course This is a 71-year-old male with history of hypertension, diabetes, dysrhythmia, obesity, came to [facility] due to reports of chest pain. Patient of note went to the [facility] clinic because of chest pain. He was given nitro and aspirin in the field with improvement of his chest pain. He was initially brought to [facility] with code STEMI called. After review by tool crib manager he was noted that the patient did not have acute STEMI. Was noted that the patient however did have a previous CT. Patient did have serial troponins drawn which were negative. He was seen by tool crib manager as well. He did have an echocardiogram done that did show him to have an ejection fraction of 60% with stage of diastolic dysfunction. He did undergo Lexiscan stress test which was reported to be negative and diminished perfusion along the basal to distal inferior lateral wall with findings consistent of an old nontransmural CT. After review by tool crib manager patient was noted to be hemodynamically stable and his chest pain was atypical. He did report resolution of his chest pain on the day of discharge. Is otherwise optimized medically with antihypertensives for hypertension and insulin for his diabetes as well as he was resumed on his prostate medication for his BPH and iron for iron deficiency anemia. During his course of stay he did improve. The plan of care was discussed with the patient and patient did verbalizes understanding. On the day of discharge patient was in stable condition Discussed plan of care with Dr. Mtz Discharge process 40 minutes Home Meds Active Scripts Metoprolol Tartrate* (Lopressor*) 25 Mg Tab, 25 MG PO BID for 30 Days, TAB Prov:REGIDOROLGA 03/27/17 Ferrous Sulfate* (Ferrous Sulfate*) 325 Mg Tabec, 325 MG PO BID for 30 Days, TAB Prov:OLGA MOSQUEDA 03/27/17 Reported Medications Methyl Salicylate/Menthol (Muscle Rub Cream) 85 Gm Cream.gm., 85 GM TP DAILY Y for PAIN 03/26/17 Triamcinolone Acetonide* (Kenalog*) 0.1%-15GM Cr, 1 APPLIC TOP EVERY OTHER DAY, #1 TUB 03/26/17 Miconazole Nitrate* (Miconazole Nitrate*) 2% - 30 Gm Cr, 1 APPLIC TOP BID, TUB 03/26/17 Multivitamin (MULTI VITAMIN DAILY) 1 Each Tablet, 1 TAB PO DAILY, TAB 03/26/17 Albuterol Sulfate* (Proair HFA*) 8.5 Gm Hfa.aer.ad, 2 PUFF INH Q4H Y for WHEEZING AND SOB, #1 INHALER 03/26/17 Dextrose (GLUCOSE BITS) 1 Gm Tab.chew, 4 GM PO PRN Y for LOW BLOOD SUGAR, TAB.CHEW BLOOD SUGAR LESS THAN 80 RECHECK BLOOD SUGAR IN 15 MIN AND REPEAT IF NECESSARY EAT FULL MEAL AFTERWARDS 03/26/17 Gabapentin* (Gabapentin*) 300 Mg Capsule, 300 MG PO QHS, #60 CAP 03/26/17 Fluticasone Propionate* (Fluticasone Propionate* Nasal) 50 Mcg/[place] - 16 Gm [place].susp, 1 SPRAY NASAL BID, #1 BOTTLE TO EACH NOSTRIL 03/26/17 [place]-3 Fatty Acids/Fish Oil (Fish Oil 1,000 mg Capsule) 1 Each Capsule, 1 EACH PO DAILY, CAP 03/26/17 Liraglutide (Victoza 3-[place]) 0.6 Mg/0.1 Ml Pen.injctr, 1.8 MG SQ DAILY, SYR 03/26/17 Finasteride* (Finasteride*) 5 Mg Tablet, 5 MG PO DAILY, TAB 03/26/17 Atorvastatin* (Atorvastatin*) 40 Mg Tablet, 40 MG PO QHS, #30 TAB 03/26/17 Tramadol HCl (Tramadol HCl) 50 Mg Tablet, 50 MG PO BID Y for PAIN, #60 TAB 03/26/17 Omeprazole* (Omeprazole*) 20 Mg Capsule.dr, 20 MG PO BID, #60 CAP 03/26/17 Amlodipine Besylate* (Amlodipine Besylate*) 2.5 Mg Tablet, 2.5 MG PO DAILY, #30 TAB 03/26/17 Tamsulosin Hcl* (Flomax*) 0.4 Mg Cap.er.24h, 0.4 MG PO DAILY, CAP 03/26/17 Oxybutynin Chloride* (Ditropan* XL) 10 Mg Tab.er.24, 10 MG PO DAILY, TAB.SA 03/26/17 Cetirizine Hcl* (Cetirizine Hcl*) 10 Mg Tablet, 10 MG PO DAILY, #30 TAB 03/26/17 Aspirin (Low Dose Aspirin) 81 Mg Tablet.dr, 81 MG PO DAILY, #30 TAB 03/26/17 Metformin Hcl* (Metformin Hcl*) 1,000 Mg Tablet, 1000 MG PO WITH BREAKFAST DINNE , #30 TAB 03/26/17 Insulin Glargine* (Lantus*) 100 Unit/Ml Soln, 30 UNIT SC QHS, #1 VIAL 03/26/17 Discontinued Reported Medications Gabapentin* (Gabapentin*) 100 Mg Capsule, 200 MG PO QHS, #180 CAP 03/26/17 Atorvastatin Calcium (Atorvastatin Calcium) 10 Mg Tablet, 10 MG PO QHS, #30 TAB 03/26/17 Liraglutide (Victoza 2-[place]) 0.6 Mg/0.1 Ml Pen.injctr, 1.2 MG SQ DAILY, SYR 03/26/17 Follow-up Plan CONDITION Patient Condition: Stable HOME CARE INSTRUCTIONS: Diet Instructions: Low Fat /Cholesterol FOLLOW UP/APPOINTMENTS Appointments 1. Follow up with Dr. Jose Auguste within one week Primary Care Provider Salvador Warren Pending Labs Laboratory Tests Test 03/26/17 17:54 03/26/17 20:14 03/26/17 20:55 03/27/17 02:28 Bedside Glucose 210mg/dL (70-220) 185mg/dL (70-220) 152mg/dL (70-220) Creatine Kinase 283IU/L (23-200) Creatine Kinase Index 3.5 Creatinine Kinase MB (Mass) 9.93ng/ml (0.0-2.4) Troponin I 0.022ng/ml (0.00-0.12) Test 03/27/17 05:45 03/27/17 06:07 03/27/17 13:51 White Blood Count 12.610^3/ul (4.8-10.8) Red Blood Count 4.2810^6/ul (4.70-6.10) Hemoglobin 12.7g/dl (14.0-18.0) Hematocrit 38.7% (42.0-52.0) Mean Corpuscular Volume 90.4fl (82.0-101.0) Mean Corpuscular Hemoglobin 29.7pg (29.0-33.0) Mean Corpuscular Hemoglobin Concent 32.8g/dl (32.0-37.0) Red Cell Distribution Width 14.2% (11.5-14.5) Platelet Count 00757^3/UL (140-415) Mean Platelet Volume 10.6fl (7.4-10.4) Neutrophils % 74.7% (39.0-77.0) Lymphocytes % 13.5% (15.0-51.0) Monocytes % 9.5% (0.0-11.0) Eosinophils % 1.5% (0.0-7.0) Basophils % 0.3% (0.0-2.0) Nucleated Red Blood Cells % 0.0/100WBC (0.0-0.0) Neutrophils # 9.410^3/ul (1.6-7.5) Lymphocytes # 1.710^3/ul (0.8-2.9) Monocytes # 1.210^3/ul (0.3-0.9) Eosinophils # 0.210^3/ul (0.0-0.5) Basophils # 0.010^3/ul (0.0-0.1) Nucleated Red Blood Cells # 0.010^3/ul (0.0-0.0) Sodium Level 137mmol/L (135-144) Potassium Level 4.1mmol/L (3.5-5.1) Chloride Level 96mmol/L (97-110) Carbon Dioxide Level 29mmol/L (21-31) Anion Gap 16 (8-16) Blood Urea Nitrogen 22mg/dl (7-20) Creatinine 0.96mg/dl (0.61-1.24) Glucose Level 143mg/dl (70-220) Calcium Level 9.1mg/dl (8.4-10.2) Phosphorus Level 3.6mg/dl (2.5-4.9) Magnesium Level 1.8mg/dl (1.7-2.5) Total Bilirubin 0.3mg/dl (0.2-1.3) Direct Bilirubin 0.00mg/dl (0.00-0.20) Indirect Bilirubin 0.3mg/dl (0-1.1) Aspartate Amino Transf (AST/SGOT) 38IU/L (15-46) Alanine Aminotransferase (ALT/SGPT) 57IU/L (13-69) Alkaline Phosphatase 87IU/L (42-121) Creatine Kinase 218IU/L (23-200) Creatine Kinase Index 2.8 Creatinine Kinase MB (Mass) 6.17ng/ml (0.0-2.4) Troponin I 0.038ng/ml (0.00-0.12) Total Protein 7.1g/dl (6.1-8.1) Albumin 3.6g/dl (3.3-4.9) Globulin 3.50g/dl (1.3-3.2) Albumin/Globulin Ratio 1.02 Triglycerides Level 103mg/dl (0-149) Cholesterol Level 103mg/dl (100-200) LDL Cholesterol, Calculated 59mg/dl HDL Cholesterol 23mg/dl (31-75) Cholesterol/HDL Ratio 4.4RATIO Bedside Glucose 156mg/dL (70-220) 156mg/dL (70-220) OLGA MOSQUEDA March 27, 2017 17:10
[2017-03-27] MEDS ORDERED: FINASTERIDE 5 MG TAB PO SCH (21:00)
[2017-03-27] MEDS ORDERED: TAMSULOSIN (SR) 0.4 MG CAP PO SCH (21:00)
[2017-03-27] MEDS ORDERED: OXYBUTYNIN (XL) 5 MG TAB PO SCH (21:00)
--- NOTE | 2017-03-28 16:28 | CARRPT ---
DATE OF PROCEDURE: 03/27/2017 PROCEDURE PERFORMED: Lexiscan. INDICATION: Chest pain. CLINICAL: The patient is a 71-year-old gentleman with chest pain with a baseline heart rate of 69 b eats per minute, baseline blood pressure 130/68 mmHg. Peak heart rate 83 beats per minute, peak blo od pressure 130/68 mmHg. EKG at baseline shows sinus rhythm with a ventricular rate of 69 beats per minute with normal ME, no rmal QRS, and normal QT intervals. Incomplete right bundle-branch block. Peak heart rate was 83 be ats per minute with normal ME, normal QRS, and normal QT interval with no dynamic QRS, ST, T wave ch anges compared to baseline. CONCLUSION: Clinically nonischemic EKG. Nondiagnostic. Cardiolite stress images to follow this di ctation. Dictated By: RICHIE BONE MD SR/NTS Conf#: [id number] DID#: [id number] CC: GIORGI NUNEZ MD;*EndCC*
--- NOTE | 2017-03-30 00:22 | RADRPT ---
Vent Rate: 68 bpm RR Interval: 0 msec VT Interval: 142 msec QRS Duration: 130 msec QT Interval: 406 msec QTC Interval: 431 msec P-R-T [place]: 38 - 42 - 35 degrees Normal sinus rhythm Nonspecific intraventricular block ST elevation, consider early repolarization, pericarditis, or injury Nonspecific T wave abnormality Abnormal ECG Electronically Signed By: Jose Auguste [id number]
== END 2017-03-27 15:17 | disposition home or self-care (01) | DRG 313 ==
LOC: E/R 08:44 → TEL 09:40
PROVIDERS: ADMIT Family Medicine; ATTEND Family Medicine
DX: R07.9 Chest pain, unspecified (principal); I10 Essential (primary) hypertension; D50.9 Iron deficiency anemia, unspecified; E78.5 Hyperlipidemia, unspecified; E11.9 Type 2 diabetes mellitus without complications; N40.0 Benign prostatic hyperplasia without lower urinary tract symptoms; I45.10 Unspecified right bundle-branch block; Z79.4 Long term (current) use of insulin
CPT/HCPCS: 36415; 71010; 78452; 80053; 80061; 80307; 82306; 82550; 82553; 82652; 82728; 82962; 83036; 83540; 83735; 83880; 84100; 84439; 84443; 84484; 85025; 85610; 85730; 93005; 93017; 93306; A9500; A9505; J1650; J1815; J2785; J7040